=== PATIENT | male | born 1945 | race Two or more races ===

== ENCOUNTER 2023-05-26 07:30 | Emergency (ER) | payer OTHER, MEDICAID ==
[~2023-05-26] VITALS: Ht 170.2 cm; Wt 89.5 kg
[~2023-05-26 07:30] MED LIST: ASPI81CH43; ASPI81CH43 GT; FINA5TAB4; HYDR-4833; LEVO125T7 OR; MECL1TAB32 OR; METO25TA36 OR; RANI300T; TAMS-35 OR; baclofen; colace; lisinopril; pantoprazole; pravastatin
[2023-05-26] MEDS ORDERED: EPINEPHrine HCL 1 MG/1 ML AMP IM ONE (08:15)
[2023-05-26] MEDS ORDERED: methylPREDNISolone SOD SUCC 40 MG/ML VL IM ONE (08:15)
[2023-05-26] MEDS ORDERED: LORATADINE 10 MG TAB PO ONE (08:15)
[2023-05-26 08:30] VITALS: PULSE 72; RESP 16; O2SAT 99
[2023-05-26] MEDS ORDERED: LORA-483 PO (08:47)
[2023-05-26] MEDS ORDERED: CALA1SUS2 EX (08:47)
[2023-05-26] MEDS ORDERED: METH4PAK PO (08:47)
[2023-05-26 08:57] VITALS: BP 123/67; PULSE 60; RESP 16; TEMP 97.9; O2SAT 97
== END 2023-05-26 09:05 | disposition home or self-care (01) ==
LOC: ER 07:30
DX: L50.0 Allergic urticaria (principal); E78.5 Hyperlipidemia, unspecified; I10 Essential (primary) hypertension; Z86.73 Personal history of transient ischemic attack (TIA), and cerebral infarction without residual deficits
CPT/HCPCS: 96372; 99284; J0171; J2920

== ENCOUNTER 2025-04-26 07:33 | Outpatient (CLI) | payer MEDICARE, OTHER ==
[~2025-04-26] VITALS: Ht 170.2 cm; Wt 83.9 kg
[~2025-04-26 07:33] MED LIST changes: +CALA1SUS2 EX; +LORA-483 PO; +MECL-90 OR; -MECL1TAB32 OR; +METH4PAK PO
[2025-04-26] MEDS: REGADENOSON 0.4 MG/5 ML SYRG IV ONE ×2 (10:06→10:08)
--- NOTE | 2025-04-29 13:45 | DVHSR ---
APPROVED REPORT Exam: Nuclear Stress Test BMI: 0 Stress Test Details Stress Test: Pharmacologic stress testing performed using 0.4 mg of regadenoson per 5 mL given IV ov er 10 seconds. HR Resting HR: 55 bpmMax Heart Rate (APMHR): 142.128686 bpm Max HR Achieved: 68 bpmTarget HR (85% APMHR): 120.104567 bpm % of APMHR: 47.89 Recovery HR: 64 bpm BP Resting BP: 171/59 mmHg Recovery BP: 135/66 mmHg ECG Resting ECG: Sinus Bradycardia Clinical Reason for Termination: Completed protocol Nurse Comments Recieved pt. from [facility]. A/Ox4 on RA. Connected to scales inspector, VS stable. PIV flushes well. Re viewed POC. Pt. verbalized understanding of procedure including risks and side effects, agrees for st ress testing. Lexiscan stress test performed per protocol. [facility] tech administered Cardiolite. Pt. tolerated well . Pt. stable, no change on exam. VS returned to baseline. Transferred to [facility] via wheelchair w/ te ch. Stress ECG Conclusion lvef 70% normal pefusion scan no ischemia NM EXAM: Myocardial Perfusion REST/STRESS Imaging Protocol: Rest Tc-99m/Stress Tc-99m 1 day Resting Data Rest SPECT myocardial perfusion imaging was performed in supine position 60 minutes following the int ravenous injection of 11.3 mCi of Tc-99m Sestamibi. Time of rest injection: 0845 Time of rest imagin Administration Route: IV Administration Site: Left Hand Pharmacologic Stress Pharmacologic stress test was performed by injecting Regadenoson 0.4 mg IV push followed by the intra venous injection of 30.5 mCi of Tc-99m Sestamibi. Time of stress injection: 1020 Time of stress imagin Administration Route: IV Administration Site: Left Hand Gated Stress SPECT was performed 40 minutes after stress injection. The images were gated to evaluate regional wall motion and calculate left ventricular ejection fracti on. Nuclear Conclusion Nuclear Findings: negative for ischemia lvef 70% normal pefusion scan no ischemia
== END 2025-04-26 17:00 | disposition home or self-care (01) ==
LOC: XYW 07:33
PROVIDERS: ATTEND Specialist
DX: R00.1 Bradycardia, unspecified (principal); I10 Essential (primary) hypertension; I25.10 Atherosclerotic heart disease of native coronary artery without angina pectoris; E78.5 Hyperlipidemia, unspecified; E66.9 Obesity, unspecified
CPT/HCPCS: 78452; 93017; A9500; J2785

== ENCOUNTER 2025-05-02 20:18 | Inpatient (IN) | payer MEDICARE, OTHER ==
[~2025-05-02] VITALS: Ht 170.2 cm; Wt 86.8 kg
--- NOTE | 2025-05-02 20:38 | ED.PDOC ---
HPI Comments 79-year-old male with a history of 2 prior CVAs, hypertension, and hyperlipidemia presents to the ED with a chief complaint of 8/10 substernal nonradiating, tight chest pain with the associated dizziness. Patient has st asis pain started approximately 30 minutes before arrival to the ED, while he was lying down. Patient denies any pain upon triage assessment. Patient notes of a stress test that was performed approximately a week ago, but this not know results of his test. Patient is noted to be taking aspirin. Patient denies any abdominal pain, shortness of breath, nausea, vomiting, diarrhea, back pain, left arm pain, urinary symptoms or any other associated symptoms, modifiers at this time. PHYSICAL EXAM: General: Awake, alert and oriented. No acute distress. Skin: Skin in warm, dry and intact. Appropriate color for ethnicity. HEENT: The head is normocephalic and atraumatic. Conjunctivae are clear without exudates or hemorrhage. Sclera is non-icteric. EOM are intact. No signs of nystagmus. Eyelids are normal in appearance without swelling or lesions. Oral mucosa is pink and moist Neck: The neck is supple with normal range of motion. No JVD. Cardiac: Heart rate and rhythm are normal. No murmurs, gallops, or rubs are auscultated. Respiratory: No signs of respiratory distress. Lung sounds are clear in all lobes bilaterally without rales, rhonchi, or wheezes. Abdominal: Abdomen is soft, non-tender without distention, guarding or rigidity. Bowel sounds are present and normoactive in all four quadrants. Extremities: Upper and lower extremities are atraumatic in appearance without deformity or edema. Neurological: The patient is awake, alert and oriented to person, place, and time with normal speech. Speech is clear. There is no facial asymmetry. Psychiatric: Appropriate mood and affect. Good judgement and insight. REVIEW OF SYSTEMS: General: No fever, no chills, or fatigue HEENT: No sore throat, no earache, no congestion, no neck pain. Cardiac: + chest pain. No palpitations. Lungs: No shortness of breath, no cough. GI: No nausea, no vomiting, no diarrhea, no constipation, no abdominal pain : No dysuria, frequency, or urgency. No hematuria. Musculoskeletal: No joint pain , no joint swelling, no extremity edema. Skin: No rash, no itching. Neuro: No headache, no dizziness, no weakness Chief Complaint: Chest Pain Time Seen by MD: 20:34 Primary Care Provider: LALITHA Reviewed Notes: Nurses Notes, Medications, Allergies Allergies: Coded Allergies: NO KNOWN ALLERGIES (Unverified , 04/26/25) Home Meds Active Scripts Methylprednisolone (Medrol Dosepak) 4 Mg Sean, 4 MG PO UD, #21 TAB 0 Refills UAD Prov:MERYJASPREET WEATHER FORECASTER 05/26/23 Calamine-Zinc Oxide (Calamine 8-8 %) 1 Melida Melida, 1 MELIDA EX TID for 30 Days, #1 KIT 0 Refills Prov:MERYJASPREET WEATHER FORECASTER 05/26/23 Loratadine (CLARITIN TABLET) 10 Mg Tb, 10 MG PO DAILY for 20 Days, #20 TAB 0 Refills Prov:JUSTIN ORDONEZChandra Calzada WEATHER [employer]ECASTER 05/26/23 Reported Medications [pantoprazole] No Conflict Check 06/28/12 [colace] No Conflict Check 06/28/12 Hydrocodone-Acetaminophen ([place] 5/325MG) 1 Tab Tb 06/28/12 [pravastatin] No Conflict Check 06/28/12 [lisinopril] No Conflict Check 06/28/12 [baclofen] No Conflict Check 06/28/12 Ranitidine Hcl (Ranitidine Hcl) 300 Mg Tab 06/28/12 Aspirin (Asa) 81 Mg Ch 06/28/12 Finasteride (Finasteride) 5 Mg Tab 06/28/12 Tamsulosin Hcl (Flomax) 0.4 Mg Cap, 0.4 MG OR 07/02/10 Aspirin (Asa) 81 Mg Ch, 81 MG GT 07/02/10 Meclizine Hcl (Meclizine Hcl) 25 Mg Tab, 25 MG OR 07/02/10 Metoprolol Succinate (Toprol Xl) 25 Mg Tab, 25 MG OR 07/02/10 Levothyroxine Sodium (Levothyroxine Sodium) 125 Mcg Tab, 125 MCG OR 07/02/10 Information Source: Patient Mode of Arrival: Ambulatory Severity: Moderate Timing: Minutes Duration: Since onset, Minutes Prehospital treatment: None Location: Chest (L) Radiation: No Radiation Quality: Sharp, Pressure Onset: At Rest Cardiac Risk Factors: HTN, Drugs PE Risk Factors: None History of: None Modifying Factors: Exertion, Movement Associated Signs and Symptoms: None Past Medical History PAST MEDICAL HISTORY: CVA, High Lipids, HTN Family History Family History: No family hx of DM Social History Smoker: Non-Smoker Alcohol: Occasionally Drugs: Denies Drug Use Lives In: Home EKG EKG : Comments No STEMI Was a procedure done? Was a procedure done?: No CP Differential Dx Differential Diagnosis: Angina, Anxiety / Panic Attack, Electrolyte Disorder, Heart Failure, Pulmonary Embolus Differential Diagnosis: HTN Encephalopathy Differential Diagnosis: Angina, Chest Wall Pain, Cholelithiasis, Esophageal reflux/spasm, Gastritis, Pericarditis, Pneumonia, Pulmonary Embolus X-Ray, Labs, Meds, VS Vital Signs Date Time Temp Pulse Resp B/P (MAP) Pulse Ox O2 Delivery O2 Flow Rate FiO2 05/02/25 21:36 66 05/02/25 20: 98.1 65 18 124/79 95 98.1 05/02/25 20:22 65 Lab Test 05/02/25 22:11 05/02/25 21:23 05/02/25 20:32 Range/Units White Blood Count 7.6 4.4-10.8 10^3/uL Red Blood Count 5.27 4.5-5.90 10^6/uL Hemoglobin 15.1 13.5-17.5 g/dL Hematocrit 43.5 41.0-53.0 % Mean Corpuscular Volume 82.6 80.0-100.0 fL Mean Corpuscular Hemoglobin 28.6 28.0-32.0 pg Mean Corpuscular Hemoglobin Concent 34.7 32.0-36.0 g/dL Red Cell Distribution Width 14.7 H 11.8-14.3 % Platelet Count 243 140-450 10^3/uL Mean Platelet Volume 7.1 6.9-10.8 fL Neutrophils (%) (Auto) 62.1 37.0-80.0 % Lymphocytes (%) (Auto) 25.7 10.0-50.0 % Monocytes (%) (Auto) 7.7 0.0-12.0 % Eosinophils (%) (Auto) 3.9 0.0-7.0 % Basophils (%) (Auto) 0.6 0.0-2.0 % Neutrophils # (Auto) 4.7 1.6-8.6 10 ^3/uL Lymphocytes # (Auto) 1.9 0.4-5.4 10 ^3/uL Monocytes # (Auto) 0.6 0-1.3 10 ^3/uL Eosinophils # (Auto) 0.3 0-0.8 10 ^3/uL Basophils # (Auto) 0 0-0.2 10 ^3/uL Nucleated Red Blood Cells 0.0 % B-Type Natriuretic Peptide 44.38 0-100 pg/mL Troponin I High Sensitivity 51 47 </=54 ng/L Sodium Level 140 136-145 mmol/L Potassium Level 4.5 3.5-5.1 mmol/L Chloride Level 107 98-107 mmol/L Carbon Dioxide Level 22 20-31 mmol/L Anion Gap 11 5-15 Blood Urea Nitrogen 21 9-23 mg/dL Creatinine 0.92 0.700-1.30 mg/dL Glomerular Filtration Rate Calc 85 >90 mL/min BUN/Creatinine Ratio 22.8 H 10.0-20.0 Serum Glucose 142 H 74-106 mg/dL Calcium Level 9.2 8.7-10.4 mg/dL Current Medications Medications (Trade) Dose Ordered Sig/Otoniel Route Start Time Stop Time Status Last Admin Aspirin 324 mg ONCE ONCE PO 05/02/25 21:45 05/02/25 21:46 DC 05/02/25 23:00 ORDERING PHYSICIAN: GE LUNDY MD PROCEDURE(s): CXR1 - CHEST XRAY 1 VIEW REASON: cp ORDER NUMBER(s): [id number], ACCESSION NUMBER(s): [id number] CHEST RADIOGRAPH Indication: cp Technique: 1 view Comparison: None FINDINGS: Lines and Tubes: None Lungs: No focal consolidation. Pleura: No effusion or pneumothorax. Cardiomediastinal contours: Unremarkable. Other: No acute osseous abnormality. IMPRESSION: 1. No acute cardiopulmonary abnormality. Time of 1ST Reevaluation: 09:05 Reevaluation 1ST: Unchanged Patient Education/Counseling: Diagnosis, Treatment, Need For Follow Up Family Education/Counseling: No Family Present SEPSIS Sepsis Screen Date sepsis recognized/suspect: May 02, 2025 Time Sepsis recognized/suspect: 2028 Recent Procedure: No On Antibiotic Therapy: No Respiratory Rate >20: No Heart Rate >90: No Temp<36 C (96.8 F) or >38.3 C: No SBP <90 or MAP <65 mmHG: No New Acute Mental Status Change: No Is the patient on CPAP, BIPAP,: No Physician Orders Electrocardigram (05/02/25 20:24) Electrocardigram (05/02/25 21:24) Electrocardigram (05/02/25 23:24) Chest Xray 1 View (05/02/25 21:37) Vital Signs Q1HR (05/02/25 21:37) Vital Signs Date Time Temp Pulse Resp B/P (MAP) Pulse Ox O2 Delivery O2 Flow Rate FiO2 05/02/25 21:36 66 05/02/25 20:25 98.1 65 18 124/79 95 98.1 05/02/25 20:22 65 Laboratory Tests Test 05/02/25 22:11 White Blood Count 7.6 10^3/uL (4.4-10.8) Medications Medications Dose Ordered Sig/Otoniel Route Start Time Stop Time Status Last Admin Dose Admin Aspirin 324 mg ONCE ONCE PO 05/02/25 21:45 05/02/25 21:46 DC 05/02/25 23:00 Departure 1 Departure Time of Disposition: 22:30 Impression: Primary Impression: Chest pain Disposition: ADMITTED INPATIENT Condition: Stable Critical Care Note Critical Care Time?: No Stability Stability form required: No Heart Score Heart Score: Heart Score Response (Comments) Value History Moderate Suspicious 1 EKG Normal 0 Age >65 2 Risk Factors 1 or 2 risk factors 1 Troponin Normal limit 0 Total 4 I personally scribed for GE LUNDY MD ([email or web address]) on 05/02/25 at 20:38. Electronically submitted by Keith rOantes ([email or web address]). I personally scribed for GE LUNDY MD ([email or web address]) on 05/02/25 at 21:20. Electronically submitted by Keith Orantes ([email or web address]). GE LUNDY MD May 02, 2025 20:38
[2025-05-02 22:12] LABS: Chloride 107 mmol/L (98-107); Potassium 4.5 mmol/L (3.5-5.1); Sodium 140 mmol/L (136-145)
[2025-05-02 22:13] LABS: Anion Gap 11 (5-15); Calcium 9.2 mg/dL (8.7-10.4); Carbon Dioxide 22 mmol/L (20-31)
[2025-05-02 22:18] LABS: BUN/Creatinine Ratio 22.8 (10.0-20.0); Blood Urea Nitrogen 21 mg/dL (9-23)
[2025-05-02 22:19] LABS: Hematocrit 43.5 % (41.0-53.0); Hemoglobin 15.1 g/dL (13.5-17.5); Mean Corpuscular Hemoglobin 28.6 pg (28.0-32.0); Mean Corpuscular Volume 82.6 fL (80.0-100.0); Nucleated Red Blood Cells % 0.0 %
[2025-05-02 22:19] LABS: Glucose 142 mg/dL (74-106)
--- NOTE | 2025-05-02 22:40 | DVH ---
CHEST RADIOGRAPH Indication: cp Technique: 1 view Comparison: None FINDINGS: Lines and Tubes: None Lungs: No focal consolidation. Pleura: No effusion or pneumothorax. Cardiomediastinal contours: Unremarkable. Other: No acute osseous abnormality. IMPRESSION: 1. No acute cardiopulmonary abnormality.
--- NOTE | 2025-05-02 22:53 | DVHHP2 ---
Admitting Diagnosis: Chest pain History of Present Illness 79 year old male with history of CVAs, HTN, HLD is complaining of substernal chest pain and tightness. Patient states he is also having dizziness. Patient reports having a stress test one week ago, but does not know is results. He states he is taking aspirin. While in the emergency department the patient was evaluated by the provider. Patient will be admitted for further evaluation and treatment. I discussed admission with the patient/family and is in agreement to treatment plan. Allergies: Coded Allergies: NO KNOWN ALLERGIES (Unverified , 04/26/25) Home Meds Active Scripts Methylprednisolone (Medrol Dosepak) 4 Mg Sean, 4 MG PO UD, #21 TAB 0 Refills UAD Prov:JASPREET ORDONEZ RACK ROOM WORKER 05/26/23 Calamine-Zinc Oxide (Calamine 8-8 %) 1 Melida Melida, 1 MELIDA EX TID for 30 Days, #1 KIT 0 Refills Prov:JASPREET ORDONEZ NP 05/26/23 Loratadine (CLARITIN TABLET) 10 Mg Tb, 10 MG PO DAILY for 20 Days, #20 TAB 0 Refills Prov:JASPREET ORDONEZ R[employer] ROOM WORKER 05/26/23 Reported Medications [pantoprazole] No Conflict Check 06/28/12 [colace] No Conflict Check 06/28/12 Hydrocodone-Acetaminophen ([place] 5/325MG) 1 Tab Tb 06/28/12 [pravastatin] No Conflict Check 06/28/12 [lisinopril] No Conflict Check 06/28/12 [baclofen] No Conflict Check 06/28/12 Ranitidine Hcl (Ranitidine Hcl) 300 Mg Tab 06/28/12 Aspirin (Asa) 81 Mg Ch 06/28/12 Finasteride (Finasteride) 5 Mg Tab 06/28/12 Tamsulosin Hcl (Flomax) 0.4 Mg Cap, 0.4 MG OR 07/02/10 Aspirin (Asa) 81 Mg Ch, 81 MG GT 07/02/10 Meclizine Hcl (Meclizine Hcl) 25 Mg Tab, 25 MG OR 07/02/10 Metoprolol Succinate (Toprol Xl) 25 Mg Tab, 25 MG OR 07/02/10 Levothyroxine Sodium (Levothyroxine Sodium) 125 Mcg Tab, 125 MCG OR 07/02/10 Current Medications Current Medications Medications (Trade) Dose Ordered Sig/Otoniel Route PRN Reason Start Time Stop Time Status Last Admin Enoxaparin Sodium (Lovenox) 40 mg DAILY SC 05/03/25 10:00 05/03/25 10:25 Nitroglycerin (Ntrostat Sublingual) 0.4 mg Q5MINP PRN SL FOR CHEST PAIN 05/02/25 23:00 05/02/25 22:59 DC Morphine Sulfate 2 mg Q30M PRN IV FOR CHEST PAIN 05/02/25 23:00 Nitroglycerin (Ntrostat Sublingual) 0.4 mg Q5MIN PRN SL FOR CHEST PAIN 05/02/25 23:00 Finasteride (Proscar Tablet) 5 mg DAILY PO 05/04/25 10:00 Meclizine HCl (Antivert Tablet) 25 mg TID PRN PO DIZZINESS 05/03/25 14:45 Tamsulosin HCl (Flomax) 0.4 mg DAILY PO 05/04/25 10:00 Review of Systems Chest pain dizziness Vital Signs Vital Signs Date Time Temp Pulse Resp B/P (MAP) Pulse Ox O2 Delivery O2 Flow Rate FiO2 05/03/25 15:28 53 12 133/58 (83) 93 05/03/25 12:11 Room Air* 0 21 05/03/25 08:10 98.0 98.0 Physical Exam General Appearance: alert, no distress HEENT: EOMI, PERRLA, normal external inspect of ears, no icterus, no nasal drainage Neck: no carotid bruit, no jugular venous distention (JVD), no lymphadenopathy Chest: normal thorax Respiratory: clear to auscultation, normal air movement Cardiovascular: regular rate and rhythm, no diastolic murmur, no jugular venous distention (JVD), no rub, no systolic murmur Abdominal: soft, no hepatomegaly, no mass, no splenomegaly, no tenderness Musculoskeletal: no joint tenderness, no swelling Extremities: normal pulses, no calf tenderness, no clubbing, no cyanosis, no edema Skin: no bruising, no jaundice, no rash Neurological: alert, No focal deficit SEPSIS Sepsis Screen Date sepsis recognized/suspect: May 02, 2025 Time Sepsis recognized/suspect: 2028 Recent Procedure: No On Antibiotic Therapy: No Respiratory Rate >20: No Heart Rate >90: No Temp<36 C (96.8 F) or >38.3 C: No SBP <90 or MAP <65 mmHG: No New Acute Mental Status Change: No Is the patient on CPAP, BIPAP,: No Physician Orders Electrocardigram (05/02/25 20:24) Electrocardigram (05/02/25 21:24) Electrocardigram (05/02/25 23:24) Chest Xray 1 View (05/02/25 21:37) Admit (05/02/25 22:46) Code Status (05/02/25 22:46) 2 Gm Sodium Diet (05/03/25 Breakfast) Enoxaparin Sodium (Lovenox) (05/03/25 10:00) Condition: Serious (05/02/25 22:46) Sequential Compression Device (05/02/25 ) *Consult Dr. Pedro Walsh (05/02/25 22:46) Morphine Sulfate Injection (05/02/25 23:00) Stat Ekg For Chest Pain (05/02/25 22:46) Notify Md Of Changes From Base (05/02/25 22:46) Diplomatic Interpreter For 24 Hours (05/02/25 22:46) Emergency Dysrhythmia Protocol (05/02/25 22:46) Rhythm Strips Once Every Shift (05/02/25 22:46) Oxygen By Nasal Cannula (05/02/25 22:46) Nitroglycerin Sublingual (Ntrostat Subli (05/02/25 23:00) Echo 2d Mode Cardiac Dop (05/03/25 22:46) Finasteride Tablet (Proscar Tablet) (05/04/25 10:00) Meclizine Tablet (Antivert Tablet) (05/03/25 14:45) Tamsulosin Hydrochloride (Flomax) (05/04/25 10:00) Vital Signs Date Time Temp Pulse Resp B/P (MAP) Pulse Ox O2 Delivery O2 Flow Rate FiO2 05/03/25 15:28 53 12 133/58 (83) 93 05/03/25 12:11 Room Air* 0 21 05/03/25 08:10 98.0 58 11 140/66 (90) 97 98.0 05/03/25 08:00 59 05/03/25 06:30 61 11 135/62 (86) 96 05/03/25 02:30 97.9 54 16 143/60 (87) 96 97.9 05/02/25 23:27 60 05/02/25 22:52 98.0 56 18 126/68 (87) 97 98.0 05/02/25 21:36 66 05/02/25 20:25 98.1 65 18 124/79 95 98.1 05/02/25 20:22 65 Laboratory Tests Test 05/02/25 22:11 05/03/25 04:52 White Blood Count 7.6 10^3/uL (4.4-10.8) 6.9 10^3/uL (4.4-10.8) Medications Medications Dose Ordered Sig/Otoniel Route Start Time Stop Time Status Last Admin Dose Admin Enoxaparin Sodium 40 mg DAILY SC 05/03/25 10:00 05/03/25 10:25 Results Labs Test 05/03/25 08:49 05/03/25 04:52 05/02/25 23:25 05/02/25 22:11 Range/Units D-Dimer, Quantitative 0.28 0.0-0.49 mg/L FEU White Blood Count 6.9 4.4-10.8 10^3/uL Red Blood Count 5.43 4.5-5.90 10^6/uL Hemoglobin 15.4 13.5-17.5 g/dL Hematocrit 44.7 41.0-53.0 % Mean Corpuscular Volume 82.4 80.0-100.0 fL Mean Corpuscular Hemoglobin 28.4 28.0-32.0 pg Mean Corpuscular Hemoglobin Concent 34.5 32.0-36.0 g/dL Red Cell Distribution Width 15.4 H 11.8-14.3 % Platelet Count 227 140-450 10^3/uL Mean Platelet Volume 7.3 6.9-10.8 fL Neutrophils (%) (Auto) 37.0-80.0 % Lymphocytes (%) (Auto) 10.0-50.0 % Monocytes (%) (Auto) 0.0-12.0 % Basophils (%) (Auto) 0.0-2.0 % Neutrophils # (Auto) 1.6-8.6 10 ^3/uL Lymphocytes # (Auto) 0.4-5.4 10 ^3/uL Monocytes # (Auto) 0-1.3 10 ^3/uL Differential Total Cells Counted 100.0 100 Neutrophils % (Manual) 50 37.0-80.0 Band Neutrophils % (Manual) 2 Lymphocytes % (Manual) 41 10.0-50.0 Monocytes % (Manual) 3 0-12 Eosinophils % (Manual) 4 0-7 Basophils % (Manual) 0 0.0-2.0 Metamyelocytes % (manual) 0 Myelocytes % (Manual) 0 Promyelocytes % (Manual) 0 Blast Cells % (Manual) 0 Reactive Lymphocytes 0 Platelet Estimate Adequate Sodium Level 139 136-145 mmol/L Potassium Level 4.0 3.5-5.1 mmol/L Chloride Level 107 98-107 mmol/L Carbon Dioxide Level 21 20-31 mmol/L Anion Gap 11 5-15 Blood Urea Nitrogen 20 9-23 mg/dL Creatinine 0.80 0.700-1.30 mg/dL Glomerular Filtration Rate Calc 91 >90 mL/min BUN/Creatinine Ratio 25.0 H 10.0-20.0 Serum Glucose 112 H 74-106 mg/dL Calcium Level 9.4 8.7-10.4 mg/dL Total Bilirubin 0.7 0.2-1.0 mg/dL Aspartate Amino Transferase (AST) 15 13-40 U/L Alanine Aminotransferase (ALT) 15 7-40 U/L Alkaline Phosphatase 111 46-116 U/L Total Protein 7.9 5.7-8.2 g/dL Albumin 4.9 H 3.2-4.8 g/dL Thyroid Stimulating Hormone (TSH) 14.03 H 0.55-4.78 uIU/mL Troponin I High Sensitivity 43 </=54 ng/L Eosinophils (%) (Auto) 3.9 0.0-7.0 % Eosinophils # (Auto) 0.3 0-0.8 10 ^3/uL Basophils # (Auto) 0 0-0.2 10 ^3/uL Nucleated Red Blood Cells 0.0 % B-Type Natriuretic Peptide 44.38 0-100 pg/mL Primary Diagnosis - Unstable angina Cardiology consult, trend troponin levels, echocardiogram, medication, monitoring -Hyperlipidemia Monitoring - Dizziness Medication, monitoring -History of CVA Monitoring - Hypothyroidism Medication, monitoring Plan discussed with: Patient, Other BUZZFRANCIS Jayden RILEY May 02, 2025 22:53
[2025-05-02] MEDS ORDERED: NITROGLYCERIN 0.4 MG SL TAB SL PRN ×2 (23:00)
[2025-05-02] MEDS ORDERED: MORPHINE SULFATE INJ 2 MG/ml SYRG IV PRN (23:00)
[2025-05-03 05:50] LABS: Alanine Aminotransferase 15 U/L (7-40); Alkaline Phosphatase 111 U/L (46-116); Anion Gap 11 (5-15); BUN/Creatinine Ratio 25.0 (10.0-20.0); Blood Urea Nitrogen 20 mg/dL (9-23); Calcium 9.4 mg/dL (8.7-10.4); Carbon Dioxide 21 mmol/L (20-31); Chloride 107 mmol/L (98-107); Potassium 4.0 mmol/L (3.5-5.1); Sodium 139 mmol/L (136-145); Total Protein 7.9 g/dL (5.7-8.2)
[2025-05-03 05:51] LABS: Bilirubin, Total 0.7 mg/dL (0.2-1.0)
[2025-05-03 05:54] LABS: Hematocrit 44.7 % (41.0-53.0); Hemoglobin 15.4 g/dL (13.5-17.5); Mean Corpuscular Hemoglobin 28.4 pg (28.0-32.0); Mean Corpuscular Volume 82.4 fL (80.0-100.0)
[2025-05-03 05:57] LABS: Albumin 4.9 g/dL (3.2-4.8); Glucose 112 mg/dL (74-106)
[2025-05-03 06:18] LABS: Total Cells Counted 100.0 (100)
[2025-05-03 06:30] VITALS: BP 135/62; PULSE 61; RESP 11; O2SAT 96
[2025-05-03 08:00] VITALS: PULSE 56; O2SAT 95
--- NOTE | 2025-05-03 09:25 | DVHINCON2 ---
Date of service: May 03, 2025 History of Present Illness HPI Patient is a 79-year-old Samoan-speaking gentleman who presented to the hospital with an episode of chest discomfort and dizziness. He is poor historian. Cardiology is involved for cardiac aspects of care. He usually comes to our office as outpatient. He actually had a recent nuclear stress test on April 26, 2025 which was nonrevealing of any ischemia and revealed good systolic function. He has past history also includes SVT which itself could have contributed to the clinical picture? Home Meds Active Scripts Methylprednisolone (Medrol Dosepak) 4 Mg Sean, 4 MG PO UD, #21 TAB 0 Refills UAD Prov:JASPREET ORDONEZ WILDLIFE MANAGEMENT PROFESSOR 05/26/23 Calamine-Zinc Oxide (Calamine 8-8 %) 1 Melida Melida, 1 MELIDA EX TID for 30 Days, #1 KIT 0 Refills Prov:JASPREET ORDONEZ WILDLIFE MANAGEMENT PROFESSOR 05/26/23 Loratadine (CLARITIN TABLET) 10 Mg Tb, 10 MG PO DAILY for 20 Days, #20 TAB 0 Refills Prov:JASPREET ORDONEZ WILDLIFE MANAGEMENT PROFESSOR 05/26/23 Reported Medications [pantoprazole] No Conflict Check 06/28/12 [colace] No Conflict Check 06/28/12 Hydrocodone-Acetaminophen (Bronson 5/325MG) 1 Tab Tb 06/28/12 [pravastatin] No Conflict Check 06/28/12 [lisinopril] No Conflict Check 06/28/12 [baclofen] No Conflict Check 06/28/12 Ranitidine Hcl (Ranitidine Hcl) 300 Mg Tab 06/28/12 Aspirin (Asa) 81 Mg Ch 06/28/12 Finasteride (Finasteride) 5 Mg Tab 06/28/12 Tamsulosin Hcl (Flomax) 0.4 Mg Cap, 0.4 MG OR 07/02/10 Aspirin (Asa) 81 Mg Ch, 81 MG GT 07/02/10 Meclizine Hcl (Meclizine Hcl) 25 Mg Tab, 25 MG OR 07/02/10 Metoprolol Succinate (Toprol Xl) 25 Mg Tab, 25 MG OR 07/02/10 Levothyroxine Sodium (Levothyroxine Sodium) 125 Mcg Tab, 125 MCG OR 07/02/10 Past Medical History Others Past medical history includes hypertension, hyperlipidemia, 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 Smoker: No Hx (Negative) Alocohol: Occassional Review of Systems Constitutional: Weakness Ears, Nose, & Throat: No symptom reported Eyes: No symptom reported Pulmonary/Respiratory: Dyspnea Cardiovascular: Chest Pain, Palpitations All Other Systems Fourteen point review of system was performed. Relevant findings as per above and as per HPI. Otherwise negative. H&P Exam Vital Signs Vital Signs Date Time Temp Pulse Resp B/P (MAP) Pulse Ox O2 Delivery O2 Flow Rate FiO2 05/03/25 08:10 98.0 58 11 140/66 (90) 97 98.0 General Appeara: Well developed Head Exam: Normal inspection Eye Exam: bilateral eye PERRL Nasal Exam: Normal inspection Mouth: Normal Inspection Pulmonary/Respiratory: Lungs clear Cardiovascular/Chest: Regular rate, Systolic murmur Peripheral Pulses: 2+ carotid (R), 2+ carotid (L), 2+ femoral (R), 2+ femoral (L), 2+ dorsalis pedis (R), 2+ dorsalis pedis (L), 2+ Radial (R), 2+ Radial (L) Abdominal Exam: Normal bowel sounds, Soft, No hepatospenomegaly Neuro/Mental St: Alert Appearance: Appropriate appearance Eye contact/ Speech: Cooperative Labs/Xrays Labs Test 05/03/25 08:49 05/03/25 04:52 05/02/25 23:25 05/02/25 22:11 Range/Units White Blood Count 6.9 4.4-10.8 10^3/uL Red Blood Count 5.43 4.5-5.90 10^6/uL Hemoglobin 15.4 13.5-17.5 g/dL Hematocrit 44.7 41.0-53.0 % Mean Corpuscular Volume 82.4 80.0-100.0 fL Mean Corpuscular Hemoglobin 28.4 28.0-32.0 pg Mean Corpuscular Hemoglobin Concent 34.5 32.0-36.0 g/dL Red Cell Distribution Width 15.4 H 11.8-14.3 % Platelet Count 227 140-450 10^3/uL Mean Platelet Volume 7.3 6.9-10.8 fL Neutrophils (%) (Auto) 37.0-80.0 % Lymphocytes (%) (Auto) 10.0-50.0 % Monocytes (%) (Auto) 0.0-12.0 % Basophils (%) (Auto) 0.0-2.0 % Neutrophils # (Auto) 1.6-8.6 10 ^3/uL Lymphocytes # (Auto) 0.4-5.4 10 ^3/uL Monocytes # (Auto) 0-1.3 10 ^3/uL Differential Total Cells Counted 100.0 100 Neutrophils % (Manual) 50 37.0-80.0 Band Neutrophils % (Manual) 2 Lymphocytes % (Manual) 41 10.0-50.0 Monocytes % (Manual) 3 0-12 Eosinophils % (Manual) 4 0-7 Basophils % (Manual) 0 0.0-2.0 Metamyelocytes % (manual) 0 Myelocytes % (Manual) 0 Promyelocytes % (Manual) 0 Blast Cells % (Manual) 0 Reactive Lymphocytes 0 Platelet Estimate Adequate Sodium Level 139 136-145 mmol/L Potassium Level 4.0 3.5-5.1 mmol/L Chloride Level 107 98-107 mmol/L Carbon Dioxide Level 21 20-31 mmol/L Anion Gap 11 5-15 Blood Urea Nitrogen 20 9-23 mg/dL Creatinine 0.80 0.700-1.30 mg/dL Glomerular Filtration Rate Calc 91 >90 mL/min BUN/Creatinine Ratio 25.0 H 10.0-20.0 Serum Glucose 112 H 74-106 mg/dL Calcium Level 9.4 8.7-10.4 mg/dL Total Bilirubin 0.7 0.2-1.0 mg/dL Aspartate Amino Transferase (AST) 15 13-40 U/L Alanine Aminotransferase (ALT) 15 7-40 U/L Alkaline Phosphatase 111 46-116 U/L Total Protein 7.9 5.7-8.2 g/dL Albumin 4.9 H 3.2-4.8 g/dL Troponin I High Sensitivity 43 </=54 ng/L Eosinophils (%) (Auto) 3.9 0.0-7.0 % Eosinophils # (Auto) 0.3 0-0.8 10 ^3/uL Basophils # (Auto) 0 0-0.2 10 ^3/uL Nucleated Red Blood Cells 0.0 % B-Type Natriuretic Peptide 44.38 0-100 pg/mL Assessment/Plan Plan Patient is a 79-year-old Samoan-speaking gentleman who presented to the hospital with an episode of chest discomfort and dizziness. He is poor historian. Cardiology is involved for cardiac aspects of care. He usually comes to our office as outpatient. He actually had a recent nuclear stress test on April 26, 2025 which was nonrevealing of any ischemia and revealed good systolic function. He has past history also includes SVT which itself could have contributed to the clinical picture? Lying flat in bed and not in acute distress. No JVD. Mucosa is pink and wet. No goiter. There is no carotid bruit. Lungs are clear to auscultation. Not using accessory muscles of breathing. Cardiac: Regular, no thrill. Systolic murmur 2/6 in the apex is heard. Abdomen is soft. There is no hepatomegaly. Extremities reveal 1+ bilateral edema. Dorsalis pedis is 2+ bilateral. There is no lateralized neurologic deficit. 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 Echocardiogram of 2011 revealed ejection fraction of 45% Echocardiogram of December 12, 2024 (performed in the office) revealed preserved left ventricular systolic function, mild MR/TR/AI/PI Nuclear stress test of April 26, 2025 (performed in [facility]) revealed ejection fraction of 70%, normal perfusion, no ischemia Creatinine: 0.92 - 0.80 Potassium: 4.5 - 4.0 BNP: 44.3 Troponin (high sensitive): 47 - 51 - 43 Chest x-ray revealed: IMPRESSION: 1. No acute cardiopulmonary abnormality. EKG reveals sinus rhythm with no specific ST-T changes Tele reveals sinus rhythm Patient is a 79-year-old gentleman who presented with chest discomfort/palpitations/dizziness. Does have a recent negative nuclear stress test for ischemia. Does have history of SCD. Acute coronary syndrome is not considered at this point. Is it possible that the patient had any kind of tachyarrhythmia/SVT which could have contributed clinical picture? Atypical chest pain Palpitations History of SVT History of alcohol abuse Hypertension Hyperlipidemia Old history of CVA Obesity Hypothyroidism Cardiac suggestion for management: Managed on telemetry Follow-up electrolytes and kidney function tests and correct abnormalities Request for D-dimer and if abnormal request for venous Doppler of lower extremities and CT angio of the lungs Echocardiogram Request for thyroid function tests Lifestyle and risk factor modification is advised. Patient was counseled to avoid alcohol Further evaluation and management depends on the above and clinical course Thank you for consultation A total of 75 minutes was spent reviewing the patient record, examining the patient, making a diagnostic and therapeutic plan, discussing this plan with medical personnel, following up on diagnostic studies and following the patient for clinical stability excluding any and all procedures. At least 50% of this time was spent in direct, [id number] contact. Thank you for allowing me to participate in this patient's care. Further recommendations will depend on patient's clinical course. Please do not hesitate to contact me if you have any questions or concerns. This medical document was created using electronic medical record system with [employer] computerized dictation system. Although this document has been carefully reviewed, there may still be some phonetic and typographical errors. These areas are purely typographical due to the imperfection of the software programs, and do not reflect any compromise in the patient's medical care Plan discussed with: Patient, Other (nurse) CARLOS JUDD MD May 03, 2025 09:25
[2025-05-03] MEDS: ENOXAPARIN SOD 40 MG/0.4 ML SYRINGE SC SCH (10:25)
--- NOTE | 2025-05-03 14:40 | DVHPN2 ---
Progress Note - Dictate Date Seen: May 03, 2025 Medical Necessity Reason Pt with a Central, PICC or Fol: No vital signs Vital Sign Date Time Temp Pulse Resp B/P (MAP) Pulse Ox O2 Delivery O2 Flow Rate FiO2 05/03/25 12:11 Room Air* 0 21 05/03/25 08:10 98.0 58 11 140/66 (90) 97 98.0 medications Current Medications Medications Dose Ordered Sig/Otoniel Route Start Time Stop Time Status Last Admin Dose Admin Enoxaparin Sodium 40 mg DAILY SC 05/03/25 10:00 05/03/25 10:25 40 MG Morphine Sulfate 2 mg Q30M PRN IV 05/02/25 23:00 Nitroglycerin 0.4 mg Q5MIN PRN SL 05/02/25 23:00 Finasteride 5 mg DAILY PO 05/04/25 10:00 Meclizine HCl 25 mg TID PRN PO 05/03/25 14:45 Tamsulosin HCl 0.4 mg DAILY PO 05/04/25 10:00 objective General Appearance: alert, no distress HEENT: EOMI, PERRLA, normal external inspect of ears, no icterus, no nasal drainage Neck: no carotid bruit, no jugular venous distention (JVD), no lymphadenopathy Chest: normal thorax Respiratory: clear to auscultation, normal air movement Cardiovascular: regular rate and rhythm, no diastolic murmur, no jugular venous distention (JVD), no rub, no systolic murmur Abdominal: soft, no hepatomegaly, no mass, no splenomegaly, no tenderness Musculoskeletal: no joint tenderness, no swelling Extremities: normal pulses, no calf tenderness, no clubbing, no cyanosis, no edema Skin: no bruising, no jaundice, no rash Neurological: alert, No focal deficit laboratory and microbiology Laboratory Tests 05/03/25 04:52 Test 05/03/25 04:52 Range/Units Serum Glucose 112 H 74-106 mg/dL Problem List - Unstable angina Cardiology consult, trend troponin levels, echocardiogram, medication, monitoring -Hyperlipidemia Monitoring - Dizziness Medication, monitoring -History of CVA Monitoring - Hypothyroidism Medication, monitoring Assessment/Plan Subjective Patient is awake and alert. Objective Patient is Arabic-speaking. Patient admitted for chest pain. Patient was seen by cardiology. Troponin level are negative. Patient is no longer complaining of dizziness. Plan Continue current treatment. Cardiology recommendations appreciated. Awaiting on cardiology evaluation. Plan discussed with: Patient, Other FRANCIS GERBER NP May 03, 2025 14:40
[2025-05-03] MEDS ORDERED: MECLIZINE HCL 25 MG TAB PO PRN (14:45)
[2025-05-03 15:28] VITALS: BP 133/58; PULSE 53; RESP 12; O2SAT 93
[2025-05-03 20:00] VITALS: PULSE 56
[2025-05-03 21:00] VITALS: BP 150/77; PULSE 59; RESP 20; TEMP 97.5; O2SAT 97
[2025-05-04] VITALS (8 sets, daily range): BP systolic 104–148; BP diastolic 60–84; PULSE 50–71; RESP 14–18; TEMP 97.5–99; O2SAT 93–99
[2025-05-04] MEDS: FINASTERIDE 5 MG TAB PO SCH (12:12)
[2025-05-04] MEDS: TAMSULOSIN HYDROCHLORIDE 0.4 MG CAP PO SCH (12:12)
--- NOTE | 2025-05-04 13:25 | DVHPN2 ---
Progress Note - Dictate Date Seen: May 04, 2025 Medical Necessity Reason Pt with a Central, PICC or Fol: No vital signs Vital Sign Date Time Temp Pulse Resp B/P (MAP) Pulse Ox O2 Delivery O2 Flow Rate FiO2 05/04/25 13:00 97.8 70 16 134/68 (90) 98 97.8 05/03/25 12:11 Room Air* 0 21 Total Intake and Output 05/03/25 05/03/25 05/04/25 15:00 23:00 07:00 Intake Total 50 ml Balance 50 ml medications Current Medications Medications Dose Ordered Sig/Otoniel Route Start Time Stop Time Status Last Admin Dose Admin Enoxaparin Sodium 40 mg DAILY SC 05/03/25 10:00 05/04/25 12:15 40 MG Morphine Sulfate 2 mg Q30M PRN IV 05/02/25 23:00 Nitroglycerin 0.4 mg Q5MIN PRN SL 05/02/25 23:00 Finasteride 5 mg DAILY PO 05/04/25 10:00 05/04/25 12:12 5 MG Meclizine HCl 25 mg TID PRN PO 05/03/25 14:45 Tamsulosin HCl 0.4 mg DAILY PO 05/04/25 10:00 05/04/25 12:12 0.4 MG objective General Appearance: alert, no distress HEENT: EOMI, PERRLA, normal external inspect of ears, no icterus, no nasal drainage Neck: no carotid bruit, no jugular venous distention (JVD), no lymphadenopathy Chest: normal thorax Respiratory: clear to auscultation, normal air movement Cardiovascular: regular rate and rhythm, no diastolic murmur, no jugular venous distention (JVD), no rub, no systolic murmur Abdominal: soft, no hepatomegaly, no mass, no splenomegaly, no tenderness Musculoskeletal: no joint tenderness, no swelling Extremities: normal pulses, no calf tenderness, no clubbing, no cyanosis, no edema Skin: no bruising, no jaundice, no rash Neurological: alert, No focal deficit laboratory and microbiology Laboratory Tests 05/03/25 04:52 Test 05/03/25 04:52 Range/Units Serum Glucose 112 H 74-106 mg/dL Problem List - Unstable angina Cardiology consult, trend troponin levels, echocardiogram, medication, monitoring -Hyperlipidemia Monitoring - Dizziness Medication, monitoring -History of CVA Monitoring - Hypothyroidism Medication, monitoring Assessment/Plan Subjective: Patient is awake and alert. Objective: Patient is Nepalese-speaking. Patient no longer complaining of chest pain or dizziness. Patient was admitted for unstable angina. Troponin levels are negative. Plan: Continue current treatment. Cardiology workup pending DC planning if cleared by cardiology. Plan discussed with: Patient, Other FRANCIS GERBER NP May 04, 2025 13:25
--- NOTE | 2025-05-04 14:58 | ECG ---
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
--- NOTE | 2025-05-04 14:59 | ECG ---
[facility] Test Date: 2025-05-02 Test Time: 23:27:31 Pat Name: CUATE LARIOS Department: ED Room: 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
--- NOTE | 2025-05-04 16:45 | DVHPN2 ---
Progress Note - Dictate Date Seen: May 04, 2025 Medical Necessity Reason Pt with a Central, PICC or Fol: No vital signs Vital Sign Date Time Temp Pulse Resp B/P (MAP) Pulse Ox O2 Delivery O2 Flow Rate FiO2 05/04/25 13:00 97.8 70 16 134/68 (90) 98 97.8 05/03/25 12:11 Room Air* 0 21 Total Intake and Output 05/03/25 05/03/25 05/04/25 15:00 23:00 07:00 Intake Total 50 ml Balance 50 ml medications Current Medications Medications Dose Ordered Sig/Otoniel Route Start Time Stop Time Status Last Admin Dose Admin Enoxaparin Sodium 40 mg DAILY SC 05/03/25 10:00 05/04/25 12:15 40 MG Morphine Sulfate 2 mg Q30M PRN IV 05/02/25 23:00 Nitroglycerin 0.4 mg Q5MIN PRN SL 05/02/25 23:00 Finasteride 5 mg DAILY PO 05/04/25 10:00 05/04/25 12:12 5 MG Meclizine HCl 25 mg TID PRN PO 05/03/25 14:45 Tamsulosin HCl 0.4 mg DAILY PO 05/04/25 10:00 05/04/25 12:12 0.4 MG laboratory and microbiology Laboratory Tests 05/03/25 04:52 Test 05/03/25 04:52 Range/Units Serum Glucose 112 H 74-106 mg/dL Assessment/Plan Patient is a 79-year-old Tamazight-speaking gentleman who presented to the hospital with an episode of chest discomfort and dizziness. He is poor historian. Cardiology is involved for cardiac aspects of care. He usually comes to our office as outpatient. He actually had a recent nuclear stress test on April 26, 2025 which was nonrevealing of any ischemia and revealed good systolic function. He has past history also includes SVT which itself could have contributed to the clinical picture? Lying flat in bed and not in acute distress. No JVD. Mucosa is pink and wet. No goiter. There is no carotid bruit. Lungs are clear to auscultation. Not using accessory muscles of breathing. Cardiac: Regular, no thrill. Systolic murmur 2/6 in the apex is heard. Abdomen is soft. There is no hepatomegaly. Extremities reveal 1+ bilateral edema. Dorsalis pedis is 2+ bilateral. There is no lateralized neurologic deficit. 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 Echocardiogram of 2011 revealed ejection fraction of 45% Echocardiogram of December 12, 2024 (performed in the office) revealed preserved left ventricular systolic function, mild MR/TR/AI/PI Nuclear stress test of April 26, 2025 (performed in [facility]) revealed ejection fraction of 70%, normal perfusion, no ischemia Creatinine: 0.92 - 0.80 Potassium: 4.5 - 4.0 BNP: 44.3 Troponin (high sensitive): 47 - 51 - 43 D-Dimer: 0.28 TSH: 14.03 Chest x-ray revealed: IMPRESSION: 1. No acute cardiopulmonary abnormality. EKG reveals sinus rhythm with no specific ST-T changes Tele reveals sinus rhythm Patient is a 79-year-old gentleman who presented with chest discomfort/palpitations/dizziness. Does have a recent negative nuclear stress test for ischemia. Does have history of SCD. Acute coronary syndrome is not considered at this point. Is it possible that the patient had any kind of tachyarrhythmia/SVT which could have contributed clinical picture? Atypical chest pain Palpitations History of SVT History of alcohol abuse Hypertension Hyperlipidemia Old history of CVA Obesity Hypothyroidism Cardiac suggestion for management: Managed on telemetry Follow-up electrolytes and kidney function tests and correct abnormalities Awaiting requested Echocardiogram Management of abnormal TFT as per primary team Lifestyle and risk factor modification is advised. Patient was counseled to avoid alcohol Further evaluation and management depends on the above and clinical course Thank you for consultation A total of 75 minutes was spent reviewing the patient record, examining the patient, making a diagnostic and therapeutic plan, discussing this plan with medical personnel, following up on diagnostic studies and following the patient for clinical stability excluding any and all procedures. At least 50% of this time was spent in direct, [id number] contact. Thank you for allowing me to participate in this patient's care. Further recommendations will depend on patient's clinical course. Please do not hesitate to contact me if you have any questions or concerns. This medical document was created using electronic medical record system with [employer] dictation system. Although this document has been carefully reviewed, there may still be some phonetic and typographical errors. These areas are purely typographical due to the imperfection of the software programs, and do not reflect any compromise in the patient's medical care Plan discussed with: Patient (Patient and primary rn ) CB PLATT [facility] May 04, 2025 16:45
--- NOTE | 2025-05-04 21:51 | DVHSR ---
APPROVED REPORT EXAM: Two-dimensional and M-mode echocardiogram with Doppler and color Doppler. Blood Pressure: 130/62 mmHg INDICATION Chest Pain RISK FACTORS Height: 67, Weight: 191 DIMENSIONS LVDd (3.8-5.7cm)LA (2D)4.5 (1.9-4.0cm)Aortic Root4.2 (2.0-3.7cm) LVDs (2.5-4.0cm)LA (MM) (1.9-4.0cm)Aortic Cusp Exc1.6 (1.5-2.0cm) EF (%) 70.0 (55-70%)Rt. Atrium (1.9-4.0cm)Asc. Aorta cm Mitral Valve MitralMitral Stenosis E wave0.84m/sMV Mean GR.mmHg A wave1.08m/sMV Peak GR.74mmHg E/A ratio0.82D MVAcm2 DECEL [id number] 1/2 [id number] IVRTmsDop MVA2.22cm2 Aortic Valve Aortic ValveAortic Stenosis V11.40m/Michael Mean GR.4mmHg V21.50m/Michael Peak GR.9mmHg LVOT Diameter2.2 (1.8-2.4cm)Doppler AVA3.55cm2 AI P 1/2 [id number] Pulmonic Valve V21.07m/s Tricuspid Valve TR Velocity2.34m/s [id number] Conclusion Left ventricle: Left ventricle was normal-sized with normal systolic function. LVEF was 70%. There was no gross wall motion abnormality. Diastolic function was considered normal for age. Right ventricle was mildly dilated with normal systolic function. Left atrium was mildly dilated. R ight atrium was normal-sized. Aortic valve was trileaflet. There was mild aortic insufficiency. There was no aortic stenosis. Th ere was trace mitral regurgitation. There was trace tricuspid regurgitation. Pulmonary valve did no t reveal any insufficiency. Right ventricular systolic pressure was assessed normal at 28 mm Hg. There was no pericardial effusi on. IVC was normal-sized with normal respiratory variation. Aortic root was dilated at 4.2 cm.
[2025-05-05 01:00] VITALS: BP 149/75; PULSE 56; RESP 16; TEMP 98.1; O2SAT 99
[2025-05-05 04:36] VITALS: BP 149/75; PULSE 56; RESP 16; TEMP 98.1; O2SAT 99
--- NOTE | 2025-05-05 06:34 | DVHPN2 ---
Progress Note - Dictate Date Seen: May 05, 2025 Medical Necessity Reason Pt with a Central, PICC or Fol: No vital signs Vital Sign Date Time Temp Pulse Resp B/P (MAP) Pulse Ox O2 Delivery O2 Flow Rate FiO2 05/05/25 01:00 98.1 56 16 149/75 (99) 99 98.1 05/04/25 19:30 Room Air* 0 21 Total Intake and Output 05/04/25 05/04/25 05/05/25 15:00 23:00 07:00 Intake Total 400 ml 720 ml Output Total 500 ml Balance 400 ml 220 ml medications Current Medications Medications Dose Ordered Sig/Otoniel Route Start Time Stop Time Status Last Admin Dose Admin Enoxaparin Sodium 40 mg DAILY SC 05/03/25 10:00 05/04/25 12:15 40 MG Morphine Sulfate 2 mg Q30M PRN IV 05/02/25 23:00 Nitroglycerin 0.4 mg Q5MIN PRN SL 05/02/25 23:00 Finasteride 5 mg DAILY PO 05/04/25 10:00 05/04/25 12:12 5 MG Meclizine HCl 25 mg TID PRN PO 05/03/25 14:45 Tamsulosin HCl 0.4 mg DAILY PO 05/04/25 10:00 05/04/25 12:12 0.4 MG laboratory and microbiology Laboratory Tests 05/03/25 04:52 Test 05/03/25 04:52 Range/Units Serum Glucose 112 H 74-106 mg/dL Assessment/Plan Patient is a 79-year-old Bengali-speaking gentleman who presented to the hospital with an episode of chest discomfort and dizziness. He is poor historian. Cardiology is involved for cardiac aspects of care. He usually comes to our office as outpatient. He actually had a recent nuclear stress test on April 26, 2025 which was nonrevealing of any ischemia and revealed good systolic function. He has past history also includes SVT which itself could have contributed to the clinical picture? Lying flat in bed and not in acute distress. No JVD. Mucosa is pink and wet. No goiter. There is no carotid bruit. Lungs are clear to auscultation. Not using accessory muscles of breathing. Cardiac: Regular, no thrill. Systolic murmur 2/6 in the apex is heard. Abdomen is soft. There is no hepatomegaly. Extremities reveal 1+ bilateral edema. Dorsalis pedis is 2+ bilateral. There is no lateralized neurologic deficit. 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 Echocardiogram of 2011 revealed ejection fraction of 45% Echocardiogram of December 12, 2024 (performed in the office) revealed preserved left ventricular systolic function, mild MR/TR/AI/PI Nuclear stress test of April 26, 2025 (performed in [facility]) revealed ejection fraction of 70%, normal perfusion, no ischemia Creatinine: 0.92 - 0.80 Potassium: 4.5 - 4.0 BNP: 44.3 Troponin (high sensitive): 47 - 51 - 43 D-Dimer: 0.28 TSH: 14.03 Chest x-ray revealed: IMPRESSION: 1. No acute cardiopulmonary abnormality. Echocardiogram reported Left ventricle: Left ventricle was normal-sized with normal systolic function. LVEF was 70%. There was no gross wall motion abnormality. Diastolic function was considered normal for age. Right ventricle was mildly dilated with normal systolic function. Left atrium was mildly dilated. Right atrium was normal-sized. Aortic valve was trileaflet. There was mild aortic insufficiency. There was no aortic stenosis. There was trace mitral regurgitation. There was trace tricuspid regurgitation. Pulmonary valve did not reveal any insufficiency. Right ventricular systolic pressure was assessed normal at 28 mm Hg. There was no pericardial effusion. IVC was normal-sized with normal respiratory variation. Aortic root was dilated at 4.2 cm. EKG reveals sinus rhythm with no specific ST-T changes Tele reveals sinus rhythm Patient is a 79-year-old gentleman who presented with chest discomfort/palpitations/dizziness. Does have a recent negative nuclear stress test for ischemia. Does have history of SCD. Acute coronary syndrome is not considered at this point. Is it possible that the patient had any kind of tachyarrhythmia/SVT which could have contributed clinical picture? Atypical chest pain Palpitations History of SVT History of alcohol abuse Hypertension Hyperlipidemia Old history of CVA Obesity Hypothyroidism Cardiac suggestion for management: Managed on telemetry Follow-up electrolytes and kidney function tests and correct abnormalities Management of abnormal TFT as per primary team Lifestyle and risk factor modification is advised. Patient was counseled to avoid alcohol Cardiac-castillo, stable and can be managed outpatient Further evaluation and management depends on the above and clinical course Thank you for consultation A total of 75 minutes was spent reviewing the patient record, examining the patient, making a diagnostic and therapeutic plan, discussing this plan with medical personnel, following up on diagnostic studies and following the patient for clinical stability excluding any and all procedures. At least 50% of this time was spent in direct, [id number] contact. Thank you for allowing me to participate in this patient's care. Further recommendations will depend on patient's clinical course. Please do not hesitate to contact me if you have any questions or concerns. This medical document was created using electronic medical record system with [employer] computerized dictation system. Although this document has been carefully reviewed, there may still be some phonetic and typographical errors. These areas are purely typographical due to the imperfection of the software programs, and do not reflect any compromise in the patient's medical care Plan discussed with: Patient CB [facility] May 05, 2025 06:34
[2025-05-05 08:00] VITALS: PULSE 60
[2025-05-05 09:00] VITALS: BP 142/65; PULSE 53; RESP 20; TEMP 97.6; O2SAT 98
--- NOTE | 2025-05-05 09:16 | DVHDS2 ---
Discharge Summary Date of Admission May 02, 2025 at 22:46 Date of Discharge: May 05, 2025 Labs/Diagnostic Data: Laboratory Results Test 05/03/25 08:49 05/03/25 04:52 05/02/25 23:25 05/02/25 22:11 D-Dimer, Quantitative 0.28 mg/L FEU (0.0-0.49) White Blood Count 6.9 10^3/uL (4.4-10.8) Red Blood Count 5.43 10^6/uL (4.5-5.90) Hemoglobin 15.4 g/dL (13.5-17.5) Hematocrit 44.7 % (41.0-53.0) Mean Corpuscular Volume 82.4 fL (80.0-100.0) Mean Corpuscular Hemoglobin 28.4 pg (28.0-32.0) Mean Corpuscular Hemoglobin Concent 34.5 g/dL (32.0-36.0) Red Cell Distribution Width 15.4 % (11.8-14.3) Platelet Count 227 10^3/uL (140-450) Mean Platelet Volume 7.3 fL (6.9-10.8) Neutrophils (%) (Auto) % (37.0-80.0) Lymphocytes (%) (Auto) % (10.0-50.0) Monocytes (%) (Auto) % (0.0-12.0) Basophils (%) (Auto) % (0.0-2.0) Neutrophils # (Auto) 10 ^3/uL (1.6-8.6) Lymphocytes # (Auto) 10 ^3/uL (0.4-5.4) Monocytes # (Auto) 10 ^3/uL (0-1.3) Differential Total Cells Counted 100.0 (100) Neutrophils % (Manual) 50 (37.0-80.0) Band Neutrophils % (Manual) 2 Lymphocytes % (Manual) 41 (10.0-50.0) Monocytes % (Manual) 3 (0-12) Eosinophils % (Manual) 4 (0-7) Basophils % (Manual) 0 (0.0-2.0) Metamyelocytes % (manual) 0 Myelocytes % (Manual) 0 Promyelocytes % (Manual) 0 Blast Cells % (Manual) 0 Reactive Lymphocytes 0 Platelet Estimate Adequate Sodium Level 139 mmol/L (136-145) Potassium Level 4.0 mmol/L (3.5-5.1) Chloride Level 107 mmol/L (98-107) Carbon Dioxide Level 21 mmol/L (20-31) Anion Gap 11 (5-15) Blood Urea Nitrogen 20 mg/dL (9-23) Creatinine 0.80 mg/dL (0.700-1.30) Glomerular Filtration Rate Calc 91 mL/min (>90) BUN/Creatinine Ratio 25.0 (10.0-20.0) Serum Glucose 112 mg/dL (74-106) Calcium Level 9.4 mg/dL (8.7-10.4) Total Bilirubin 0.7 mg/dL (0.2-1.0) Aspartate Amino Transferase (AST) 15 U/L (13-40) Alanine Aminotransferase (ALT) 15 U/L (7-40) Alkaline Phosphatase 111 U/L (46-116) Total Protein 7.9 g/dL (5.7-8.2) Albumin 4.9 g/dL (3.2-4.8) Thyroid Stimulating Hormone (TSH) 14.03 uIU/mL (0.55-4.78) Troponin I High Sensitivity 43 ng/L (</=54) Eosinophils (%) (Auto) 3.9 % (0.0-7.0) Eosinophils # (Auto) 0.3 10 ^3/uL (0-0.8) Basophils # (Auto) 0 10 ^3/uL (0-0.2) Nucleated Red Blood Cells 0.0 % B-Type Natriuretic Peptide 44.38 pg/mL (0-100) Other Laboratory Tests 05/03/25 04:52 Brief Hx & Hospital Course: 79 year old male with history of CVAs, HTN, HLD is complaining of substernal chest pain and tightness. Patient states he is also having dizziness. Patient reports having a stress test one week ago, but does not know is results. He states he is taking aspirin. Patient was admitted for dizziness palpitations and angina. ?Patient was seen by cardiology. Patient had a recent stress test several months ago which was negative and had no acute findings. Patient's dizziness resolved on its own most likely it was transient and could be related to dehydration. EKG shows sinus rhythm. Patient was seen monitored on the telemetry floor. Patient cleared for discharge by cardiology. Patient had echocardiogram done. Estimated EF of 70%. Patient will continue his home medications and follow-up with his PCP in 1 week. There were no complaints or new complaints upon discharge, all questions and concerns were answered. Patient was advised to return to the ER or call 911 if any headaches, dizziness, shortness of breath, chest pain, bleeding, fevers, or worsening of medical condition. Patient/Family was counseled about treatment plan, medications, possible side effects, patient verbalized understanding. All questions were answered to the best of my ability. The patient symptoms improved and they are okay to be DC. Condition at Discharge: Stable Final Diagnosis/Problems List Cardiac clear for discharge transient dizziness resolved no further complaints of chest pain Discharge Disposition: Home Discharge Instruct/Medications Diet: Cardiac 2g Na,low cholest Activity: No Restrictions, As Tolerated Follow Up/Referral: pcp 1 week Miscellaneous Medications Aspirin (Asa), (Reported) Finasteride (Finasteride), (Reported) Hydrocodone-Acetaminophen ([place] 5/325MG), (Reported) Levothyroxine Sodium (Levothyroxine Sodium), 125 MCG OR, (Reported) Metoprolol Succinate (Toprol Xl), 25 MG OR, (Reported) Ranitidine Hcl (Ranitidine Hcl), (Reported) Tamsulosin Hcl (Flomax), 0.4 MG OR, (Reported) [lisinopril], (Reported) [pantoprazole], (Reported) [pravastatin], (Reported) Discontinued Medications Aspirin (Asa), 81 MG GT, (Reported) Calamine-Zinc Oxide (Calamine 8-8 %), 1 CARMENCITA EX TID Loratadine (Claritin Tablet), 10 MG PO DAILY Meclizine Hcl (Meclizine Hcl), 25 MG OR, (Reported) Methylprednisolone (Medrol Dosepak), 4 MG PO UD [baclofen], (Reported) [colace], (Reported) Discharge Statement: "Patient was advised to return to the ER or call 911 if any headaches, dizziness, shortness of breath, chest pain, abdominal pain, bleeding, fevers, or worsening of medical condition. Patient was counseled about treatment plan, medications, possible side effects, patientverbalized understanding. All questions were answered to the best of my ability. This discharge took greater then 30 minutes in planning, reviewing documentation, counseling the patient, and discussing with other team members." ASSESSMENT ASSESSMENT Assessment Cardiac clear for discharge transient dizziness resolved no further complaints of chest pain FRANCIS GERBER NP May 05, 2025 09:16
[2025-05-05 09:39] VITALS: TEMP 36.7
--- NOTE | 2025-05-07 07:35 | ECG ---
[facility] Test Date: 2025-05-02 Test Time: 20:22:44 Pat Name: CUATE LARIOS Department: ED Room: [facility] A Gender: M Operations Systems Specialist: ROSEMARY : [id number] Requested By: GE LUNDY Order Number: [id number] Reading MD: Silvio Vance Measurements Intervals [place] Rate: 65 P: 46 [place]: 162 QRS: 70 QRSD: 98 T: 24 QT: 389 QTc: 405 Interpretive Statements Sinus rhythm Electronically Signed On 05-07-2025 17:58:40 PDT by Silvio Vance Please click the below link to view image of tracing.
== END 2025-05-05 09:50 | disposition home or self-care (01) | DRG 206 ==
LOC: ER 20:18 → OVERFLOW 22:46 → TELE-WESTW 05-03 16:36
PROVIDERS: ADMIT Nurse Practitioner; ATTEND Nurse Practitioner
DX: M94.0 Chondrocostal junction syndrome [Tietze] (principal); E86.0 Dehydration; E78.5 Hyperlipidemia, unspecified; I10 Essential (primary) hypertension; E03.9 Hypothyroidism, unspecified; E66.9 Obesity, unspecified; I25.2 Old myocardial infarction; Z86.73 Personal history of transient ischemic attack (TIA), and cerebral infarction without residual deficits; Z79.82 Long term (current) use of aspirin; Z79.899 Other long term (current) drug therapy; Z68.28 Body mass index [BMI] 28.0-28.9, adult
CPT/HCPCS: 36415; 71045; 80048; 80053; 83880; 84443; 84484; 85007; 85025; 85027; 85379; 93005; 93306; G0378